=== PATIENT | female | born 1950 | race Caucasian/White ===

== ENCOUNTER 2021-11-20 08:55 | Outpatient (CLI) | payer MEDICARE, OTHER | END 2021-11-20 08:56 | disposition home or self-care (01) | LOC: CSHMAMMO 08:55 | PROVIDERS: ATTEND Surgery | DX: C50.912 Malignant neoplasm of unspecified site of left female breast (principal) | CPT/HCPCS: 77066; G0279 ==

== ENCOUNTER 2022-03-24 08:26 | Emergency (ER) | payer MEDICARE, OTHER | END 2022-03-24 09:33 | disposition home or self-care (01) | LOC: CSHERS 08:26 | DX: J18.9 Pneumonia, unspecified organism (principal) | CPT/HCPCS: 71045 ==

== ENCOUNTER 2022-12-03 09:12 | Outpatient (CLI) | payer MEDICARE, OTHER | END 2022-12-03 09:13 | disposition home or self-care (01) | LOC: CSHMAMMO 09:12 | PROVIDERS: ATTEND Surgery | DX: C50.912 Malignant neoplasm of unspecified site of left female breast (principal) | CPT/HCPCS: 77066; G0279 ==

== ENCOUNTER 2023-02-15 20:49 | Emergency (ER) | payer MEDICARE, OTHER ==
[~2023-02-15 20:49] MED LIST: Iopamidol 300 61% 100 ML VIAL FS ONE
[2023-02-15 22:12] LABS: #Basophils 0.1 10x3/uL (0.0-0.2); #Eosinphils 0.2 10x3/uL (0.0-0.5); #Monocytes 0.5 10x3/uL (0.0-1.1); #Neutrophils 4.9 10x3/uL (1.5-8.4); %Basophils 0.7 % (0.0-2.0); %Eosinophils 2.1 % (0.0-6.0); %Lymphocytes 20.1 % (18.0-47.0); %Neutrophils 68.7 % (40.0-75.0); Hematocrit 39.2 % (34.9-44.5); Hemoglobin 13.1 g/dL (12.0-15.5); Mean Corpuscular HGB CONC 33.4 g/dL (32.0-36.0); Mean Corpuscular Hemoglobin 32.1 pg (27.0-33.0); Mean Corpuscular Volume 96.1 fl (81.6-98.3); Mean Platelet Volume 9.4 fl (7.4-10.4); Platelet Count 222 10x3/uL (150-450); RBC Distribution Width 13.2 % (11.5-14.5); Red Blood Cell (RBC) Count 4.08 10x6/uL (3.90-5.03); White Blood Cell (WBC) Count 7.2 10x3/uL (3.5-10.5)
[2023-02-15 22:27] LABS: Anion Gap 13 mmol/L (10-20); BUN (Urea Nitrogen) 15 mg/dL (9.8-20.1); Calc. Creatinine Clearance 0 mL/min (70-130); Carbon Dioxide 26 mmol/L (23-31); Chloride 107 mmol/L (98-107); Potassium 4.3 mmol/L (3.5-5.1); Sodium 142 mmol/L (136-145)
[2023-02-15 22:28] LABS: ALT (SGPT) 17 U/L (8-55); AST (SGOT) 22 U/L (5-34); Albumin 4.1 g/dL (3.4-4.8); Alkaline Phosphatase 58 U/L (40-110); Bilirubin, Total 0.4 mg/dL (0.2-1.2); Calcium 9.5 mg/dL (7.8-10.44); Estimated GFR 92; Globulin 2.6 g/dL (2.4-3.5); Glucose 110 mg/dL (83-110); Lipase 40 U/L (8-78); Protein, Total 6.7 g/dL (5.8-8.1)
[2023-02-15 22:30] LABS: Troponin I Less than 0.010 ng/mL (< 0.028)
[2023-02-15] MEDS ORDERED: Acetaminophen 500 MG TAB ONE (23:45)
== END 2023-02-16 00:07 | disposition home or self-care (01) ==
LOC: CSHERS 20:49
DX: S80.811A Abrasion, right lower leg, initial encounter (principal); M54.2 Cervicalgia; M53.3 Sacrococcygeal disorders, not elsewhere classified; W08.XXXA Fall from other furniture, initial encounter; Y93.89 Activity, other specified
CPT/HCPCS: 36415; 70450; 71260; 72125; 74177; 80053; 83690; 84484; 85025; Q9967

== ENCOUNTER 2023-08-22 08:41 | Outpatient (CLI) | payer MEDICARE, OTHER | END 2023-08-22 08:42 | disposition home or self-care (01) | LOC: CSHCT 08:41 | PROVIDERS: ATTEND Internal Medicine Hematology & Oncology | DX: R91.1 Solitary pulmonary nodule (principal); C50.912 Malignant neoplasm of unspecified site of left female breast | CPT/HCPCS: 71250 ==

== ENCOUNTER 2023-11-25 10:09 | Outpatient (CLI) | payer MEDICARE, OTHER | END 2023-11-25 10:10 | disposition home or self-care (01) | LOC: CSHCT 10:09 | PROVIDERS: ATTEND Urology | DX: N28.1 Cyst of kidney, acquired (principal); N95.2 Postmenopausal atrophic vaginitis; R35.0 Frequency of micturition; K76.89 Other specified diseases of liver | CPT/HCPCS: 74178; 82565; Q9967 ==

== ENCOUNTER 2023-12-31 14:05 | Outpatient (CLI) | payer MEDICARE, OTHER | END 2023-12-31 14:06 | disposition home or self-care (01) | LOC: CSHMRI 14:05 | PROVIDERS: ATTEND Family Medicine Sports Medicine | DX: M79.2 Neuralgia and neuritis, unspecified (principal); M77.8 Other enthesopathies, not elsewhere classified; M71.58 Other bursitis, not elsewhere classified, other site ==

== ENCOUNTER 2024-01-02 09:44 | Outpatient (CLI) | payer MEDICARE, OTHER | END 2024-01-02 09:45 | disposition home or self-care (01) | LOC: CSHMAMMO 09:44 | PROVIDERS: ATTEND Surgery | DX: Z08 Encounter for follow-up examination after completed treatment for malignant neoplasm (principal); Z85.3 Personal history of malignant neoplasm of breast | CPT/HCPCS: 77066; G0279 ==

== ENCOUNTER 2024-01-29 11:20 | Outpatient (CLI) | payer MEDICARE, OTHER | END 2024-01-29 11:21 | disposition home or self-care (01) | LOC: CSHRAD 11:20 | PROVIDERS: ATTEND Psychiatry & Neurology Neurology | DX: M48.02 Spinal stenosis, cervical region (principal); Z98.1 Arthrodesis status; M43.12 Spondylolisthesis, cervical region; M50.321 Other cervical disc degeneration at C4-C5 level; M47.812 Spondylosis without myelopathy or radiculopathy, cervical region | CPT/HCPCS: 72052 ==

== ENCOUNTER 2025-01-04 10:07 | Outpatient (CLI) | payer MEDICARE, OTHER | END 2025-01-04 10:08 | disposition home or self-care (01) | LOC: CSHMAMMO 10:07 | PROVIDERS: ATTEND Internal Medicine Hematology & Oncology | DX: Z08 Encounter for follow-up examination after completed treatment for malignant neoplasm (principal); Z85.3 Personal history of malignant neoplasm of breast | CPT/HCPCS: 77066; G0279 ==